=== PATIENT | female | born 1955 | race Caucasian/White ===

== ENCOUNTER 2020-06-02 20:50 | Inpatient (IN) | payer MEDICARE, OTHER ==
[~2020-06-02] VITALS: Ht 157.5 cm; Wt 45.0 kg
[~2020-06-02 20:50] MED LIST: 3IN1 COMMODE XX; ACETAMINOPHEN325 MG PO; ATROVENT HFA12.9 GM INH; BREO ELLIPTA 11 EACH PO; CERTAGEN1 EACH PO; DIAZEPAM 5MG TAB5 MG PO; DORZOLAMIDE-TIM10 ML EYEBOTH; FEOSOL325 MG PO; FISH OIL 1,3601 EACH PO; FOLIXAPURE5000 UNIT PO; K-DUR20 MEQ PO; LASIX20 MG PO; LATANOPROST2.5 ML EYEBOTH; LIDOCAINE 5% P1 EACH TOP; LOVENOX40 MG/0.4 SC; MOBIC7.5 MG PO; NORCO 5-325 TA1 EACH PO; OXYCODONE-ACET1 EAC1 PO; PREDNISONE 10MG10 MG PO; PRILOSEC20 MG PO; PROVENTIL HFA6.7 GM INH; SYNTHROID75 MCG PO; VITAMIN D35000 UNI1 PO; XARELTO10 MG PO; ZOFRAN8 MG PO; wheelchair
[2020-06-02 21:44] LABS: BASOPHIL 0.5 % (0-2); EOSINOPHIL 0.5 % (0-7); HCT 43.2 % (37.0-47.0); HGB 14.3 g/dl (12.5-16.0); LYMPHOCYTE 11.3 % (15-48); MCH 30.6 pg (25.0-31.0); MCHC 33.1 g/dL (32.0-36.0); MCV 92.3 fL (78.0-100.0); MONOCYTE 6.8 % (0-12); MPV 10.7 fL (6.0-9.5); NEUTROPHIL 80.6 % (41-80); NRBC 0; PLT 207 K/uL (150-400); RBC 4.68 M/uL (4.20-5.40); RDW 13.4 % (11.5-14.0)
[2020-06-02 21:57] LABS: ALBUMIN 3.7 g/dL (3.4-5.0); BILIRUBIN - TOTAL 0.5 mg/dL (0.2-1.0); BUN/CREAT RATIO (CALC) 44.2 RATIO; CREATININE 0.43 mg/dL (0.51-0.95); POTASSIUM 3.5 mmol/L (3.5-5.1); TOTAL PROTEIN 7.7 g/dL (6.4-8.2)
[2020-06-02 22:03] LABS: PRO-BNP 1380 pg/mL (<125)
[2020-06-03 08:22] LABS: CORONAVIRUS 2019 SARS-COV-2 NEGATIVE (NEGATIVE); INFLUENZA A NAA NEGATIVE (NEGATIVE)
[2020-06-03] MEDS ORDERED: MULTIVITAMIN1 EACH PO (09:31)
[2020-06-03] MEDS ORDERED: VITAMIN D3 PO (09:33)
--- NOTE | 2020-06-03 13:56 | NUR ---
REPORTS SHE LIVES WITH HER SISTER; PLEASE ADVISE OF ANY DISCHARGE NEEDS
--- NOTE | 2020-06-03 17:18 | NUR ---
06/03/20 Ms. Rangel is staying with her sister, [place]. She has [employer], cough bilingual office assistant, suctionmachine, smart vest, wc, and s. bench. An electric wc is on order. [facility] has followed patient in the past. Please advise if HH is needed at discharge. - Patient reports her daughter to be knowledgeable of ALS support groups / Associations.
[2020-06-04 05:59] LABS: HCT 37.2 % (37.0-47.0); HGB 12.1 g/dl (12.5-16.0); MCH 30.8 pg (25.0-31.0); MCHC 32.5 g/dL (32.0-36.0); MCV 94.7 fL (78.0-100.0); MPV 11.6 fL (6.0-9.5); RBC 3.93 M/uL (4.20-5.40); RDW 13.8 % (11.5-14.0); WBC 10.7 K/uL (4.0-10.5)
[2020-06-04 07:01] LABS: BUN/CREAT RATIO (CALC) 69.2 RATIO; CREATININE 0.39 mg/dL (0.51-0.95); POTASSIUM 4.1 mmol/L (3.5-5.1)
--- NOTE | 2020-06-04 13:57 | NUR ---
PT C/O HEARING LOSS TO RIGHT EAR, STATES "EVERYTHING SOUNDS MUFFLED AND I HAVE A BUZZING IN MY EAR." DR PLASENCIA NOTIFIED, WILL COME SEE PATIENT
--- NOTE | 2020-06-04 14:49 | NUR ---
1420 DR PLASENCIA AT BEDSIDE, ORDERED NASAL SPRAY AND CLARITIN
--- NOTE | 2020-06-04 15:22 | NUR ---
06/04 Discharge is anticipated for 06/05. is recommended for PT home eval. A referral was made to [facility] via [facility] per patient choice; affliation explained.
[2020-06-05 06:32] LABS: HGB 12.7 g/dl (12.5-16.0); MCH 30.9 pg (25.0-31.0); MCHC 33.4 g/dL (32.0-36.0); MCV 92.5 fL (78.0-100.0); MPV 10.9 fL (6.0-9.5); RBC 4.11 M/uL (4.20-5.40); RDW 13.6 % (11.5-14.0); WBC 9.5 K/uL (4.0-10.5)
[2020-06-05 06:44] LABS: BUN/CREAT RATIO (CALC) 52.5 RATIO; CREATININE 0.4 mg/dL (0.51-0.95); POTASSIUM 3.6 mmol/L (3.5-5.1)
--- NOTE | 2020-06-05 17:46 | NUR ---
1215 PATIENTS HR 118 BP 205/70. DR PLASENCIA NOTIFIED VIA TELEPHONE. PATIENT PLACED ON TELE AT THIS TIME, ORDERED 5MG IVP METOPROLOL 1T TO BE GIVEN NOW. MEDICAITON GIVEN. PATIENTS HR NOW 86 BP 150/84
[2020-06-06 06:13] LABS: HCT 40.4 % (37.0-47.0); HGB 13.7 g/dl (12.5-16.0); MCH 31.1 pg (25.0-31.0); MCHC 33.9 g/dL (32.0-36.0); MCV 91.6 fL (78.0-100.0); MPV 10.8 fL (6.0-9.5); RBC 4.41 M/uL (4.20-5.40); RDW 13.4 % (11.5-14.0); WBC 9.8 K/uL (4.0-10.5)
[2020-06-06 06:32] LABS: BUN/CREAT RATIO (CALC) 42.5 RATIO; CREATININE 0.4 mg/dL (0.51-0.95); POTASSIUM 3.7 mmol/L (3.5-5.1)
--- NOTE | 2020-06-06 16:10 | NUR ---
PT GOING TO [facility] REPORT CALLED TO VICENTE ARGUETA. FAMILY AT BEDSIDE IN FORMED OF PT TRANSFER. PT WILL BE GOING TO ROOM 4A-BED 9. EMS CALLED AND INFORMED OF TRANSPORT. AWAITING ON TRANSPORT.
--- NOTE | 2020-06-06 23:04 | NUR ---
AT 2007 CALL TO EMS STILL HAVE 2 TRUCKS OUT OF TOWN AND CANNOT TRANSPORT AT THIS TIME AND UNABLE TO GIVE ME A TIME. FAMILY AT STATION WAS LOAD CHECKER AND STATED WANTED TO JUST WAIT TIL TOMORROW, EXPLAINED TO FAMILY AND PATIENT THAT SHE WOULD LOSE HER BED AND THEY WERE STILL SURE THEY WANTED TO NOT GO. CHIROPRACTIC NEUROLOGIST INFORMED AND SHE SPOKE WITH FAMILY AND PATIENT WHO NOW HAS DECIDED SHE WANTS TO WAIT UNTIL TUESDAY. ALEXANDER ROJAS INFORMED AND ORDER OBTAINED TO LEAVE MONITOR OFF SINCE IT HAS BEEN OFF SINCE ABOUT 3PM PER FAMILY. CALL TO EMS WHO IS ON THE WAY NOW, ASKED FAMILY AND PATIENT AGAIN IF SHE WAS SURE SHE DID NOT WANT TO GO AND SHE REFUSED AGAIN THE TRANSFER. INFORMED EMS AND ALSO CALLED [facility] AND INFORMED THEM. FAMILY AND PATIENT ARE AWARE THEY LOSE THE BED ONCE DISCHARGE IS STOPPED
--- NOTE | 2020-06-07 14:37 | NUR ---
CALLED REPORT TO BRITTNY DOWD, GAVE REPORT TO LALY ARGUETA. FAMILY AWARE AND IN ROOM WITH PT. EMS PICKED UP PT AT 1351
== END 2020-06-07 13:55 | disposition other institution (70) | DRG 193 ==
LOC: FER 20:50 → FICU 06-03 07:19 → FMS 06-03 07:19
PROVIDERS: Emergency Medicine; ADMIT Hospitalist
DX: J18.9 Pneumonia, unspecified organism (principal); J96.01 Acute respiratory failure with hypoxia; J98.19 Other pulmonary collapse; G12.21 Amyotrophic lateral sclerosis; E03.9 Hypothyroidism, unspecified; K21.9 Gastro-esophageal reflux disease without esophagitis; F41.9 Anxiety disorder, unspecified; Z20.822 Contact with and (suspected) exposure to COVID-19; Z96.652 Presence of left artificial knee joint; I50.9 Heart failure, unspecified; Z96.611 Presence of right artificial shoulder joint; Z90.710 Acquired absence of both cervix and uterus; Z87.891 Personal history of nicotine dependence; Z90.49 Acquired absence of other specified parts of digestive tract; Z98.890 Other specified postprocedural states; Z88.5 Allergy status to narcotic agent; Z91.040 Latex allergy status
CPT/HCPCS: 36415; 71045; 71275; 80048; 80053; 83605; 83880; 84145; 84484; 85025; 85379; 87040; 93005; 94640; 94760; 97162; 97166; 97530-GP; 97535; J0456; J0696; J2543; J2930; J7050; Q9967; U0002

== ENCOUNTER 2020-07-08 11:57 | Inpatient (IN) | payer MEDICARE, OTHER ==
[~2020-07-08 11:57] MED LIST changes: +MULTIVITAMIN1 EACH PO; +VITAMIN D3 PO
[2020-07-08 13:10] LABS: BASOPHIL 0.8 % (0-2); EOSINOPHIL 8.6 % (0-7); HCT 40.3 % (37.0-47.0); HGB 13.4 g/dl (12.5-16.0); LYMPHOCYTE 25.3 % (15-48); MCH 30.6 pg (25.0-31.0); MCHC 33.3 g/dL (32.0-36.0); MONOCYTE 8.6 % (0-12); MPV 11.4 fL (6.0-9.5); NEUTROPHIL 56.4 % (41-80); NRBC 0; PLT 256 K/uL (150-400); RBC 4.38 M/uL (4.20-5.40); RDW 13.5 % (11.5-14.0); WBC 7.4 K/uL (4.0-10.5)
[2020-07-08 13:16] LABS: INR 1.24 (0.9-1.2); PROTHROMBIN TIME 14.8 SECONDS (11.4-13.6)
[2020-07-08 13:34] LABS: ALBUMIN 3.1 g/dL (3.4-5.0); BILIRUBIN - TOTAL 0.3 mg/dL (0.2-1.0); BUN/CREAT RATIO (CALC) 47.6 RATIO; CREATININE 0.42 mg/dL (0.51-0.95); GLOBULIN (CALCULATION) 3.4 g/dL; POTASSIUM 3.9 mmol/L (3.5-5.1); TOTAL PROTEIN 6.5 g/dL (6.4-8.2)
--- NOTE | 2020-07-08 16:12 | NUR ---
07/08/20 Patient is current with [facility].
--- NOTE | 2020-07-09 02:10 | NUR ---
AROUND 0037 PT. HR STARTED TO DIP DOWN IN THE LOW 40S AND GO UP TO THE HIGH 50S IN AFIB. PT. IS ASYMPTOMATIC, BUT HYPOTENSIVE AT 86/45. CARDIZEM HAS BEEN TITRATED DOWN TO 5 AND THEN RUNDER OFF AT 0051 PER MANAGER STORAGE ORDER. MANAGER STORAGE HAS BEEN NOTIFIED AND UPDATED ON PT.S VITAL SIGNS AND STATUS. NO FURTHER ORDERS AT THIS TIME.
[2020-07-09 05:56] LABS: BASOPHIL 0.1 % (0-2); EOSINOPHIL 0 % (0-7); HCT 40.3 % (37.0-47.0); HGB 13.1 g/dl (12.5-16.0); LYMPHOCYTE 9.2 % (15-48); MCH 30.7 pg (25.0-31.0); MCHC 32.5 g/dL (32.0-36.0); MCV 94.4 fL (78.0-100.0); MONOCYTE 5.3 % (0-12); MPV 11.2 fL (6.0-9.5); NEUTROPHIL 85.1 % (41-80); NRBC 0; PLT 253 K/uL (150-400); RBC 4.27 M/uL (4.20-5.40); RDW 13.4 % (11.5-14.0); WBC 8.8 K/uL (4.0-10.5)
[2020-07-09 06:16] LABS: BUN/CREAT RATIO (CALC) 43.9 RATIO; CREATININE 0.57 mg/dL (0.51-0.95); MAGNESIUM 1.6 mg/dL (1.8-2.4); POTASSIUM 4.9 mmol/L (3.5-5.1)
[2020-07-10 06:18] LABS: BASOPHIL 0.7 % (0-2); EOSINOPHIL 2.2 % (0-7); HCT 38.8 % (37.0-47.0); HGB 12.2 g/dl (12.5-16.0); LYMPHOCYTE 25.2 % (15-48); MCH 31.2 pg (25.0-31.0); MCHC 31.4 g/dL (32.0-36.0); MCV 99.2 fL (78.0-100.0); MONOCYTE 11.8 % (0-12); MPV 11.2 fL (6.0-9.5); NEUTROPHIL 59.7 % (41-80); NRBC 0; PLT 237 K/uL (150-400); RBC 3.91 M/uL (4.20-5.40); WBC 11.1 K/uL (4.0-10.5)
[2020-07-10 06:27] LABS: BUN/CREAT RATIO (CALC) 54.9 RATIO; CREATININE 0.51 mg/dL (0.51-0.95); MAGNESIUM 1.8 mg/dL (1.8-2.4); PHOSPHORUS 5.6 mg/dL (2.6-4.7); POTASSIUM 4.6 mmol/L (3.5-5.1)
[2020-07-11 05:41] LABS: BASOPHIL 1.2 % (0-2); EOSINOPHIL 6.2 % (0-7); HCT 37.5 % (37.0-47.0); HGB 12.1 g/dl (12.5-16.0); LYMPHOCYTE 24.7 % (15-48); MCH 30.4 pg (25.0-31.0); MCHC 32.3 g/dL (32.0-36.0); MCV 94.2 fL (78.0-100.0); MONOCYTE 10.7 % (0-12); MPV 11.2 fL (6.0-9.5); NEUTROPHIL 56.9 % (41-80); NRBC 0; PLT 229 K/uL (150-400); RBC 3.98 M/uL (4.20-5.40); RDW 13.5 % (11.5-14.0); WBC 10.2 K/uL (4.0-10.5)
[2020-07-11 06:12] LABS: ALBUMIN 3.1 g/dL (3.4-5.0); BILIRUBIN - TOTAL 0.3 mg/dL (0.2-1.0); BUN/CREAT RATIO (CALC) 41.8 RATIO; CREATININE 0.67 mg/dL (0.51-0.95); GLOBULIN (CALCULATION) 2.8 g/dL; MAGNESIUM 1.6 mg/dL (1.8-2.4); TOTAL PROTEIN 5.9 g/dL (6.4-8.2)
[2020-07-11 12:41] LABS: FT4 (FREE T4) 1.7 ng/dL (0.76-1.46)
--- NOTE | 2020-07-11 14:36 | NUR ---
PT TO RETURN HOME. SHE IS CURRENT WITH [facility]. PLEASE LET [facility] KNOW IF PT. D/C HOME OVER THE WEEKEND.
[2020-07-12 06:02] LABS: EOSINOPHIL 9.4 % (0-7); HCT 39.8 % (37.0-47.0); HGB 12.8 g/dl (12.5-16.0); LYMPHOCYTE 19.2 % (15-48); MCH 30.7 pg (25.0-31.0); MCHC 32.2 g/dL (32.0-36.0); MCV 95.4 fL (78.0-100.0); MONOCYTE 13.2 % (0-12); MPV 11.1 fL (6.0-9.5); NRBC 0; PLT 262 K/uL (150-400); RBC 4.17 M/uL (4.20-5.40); RDW 13.6 % (11.5-14.0); WBC 9.5 K/uL (4.0-10.5)
[2020-07-12 06:35] LABS: BUN/CREAT RATIO (CALC) 38.7 RATIO; CREATININE 0.62 mg/dL (0.51-0.95); POTASSIUM 4.6 mmol/L (3.5-5.1)
[2020-07-13 05:32] LABS: BUN/CREAT RATIO (CALC) 45.8 RATIO; CREATININE 0.59 mg/dL (0.51-0.95); POTASSIUM 4.3 mmol/L (3.5-5.1)
[2020-07-14 06:55] LABS: BUN/CREAT RATIO (CALC) 51.6 RATIO; CREATININE 0.64 mg/dL (0.51-0.95); POTASSIUM 3.7 mmol/L (3.5-5.1)
[2020-07-14 06:59] LABS: MAGNESIUM 1.5 mg/dL (1.8-2.4)
[2020-07-14] MEDS ORDERED: LOPRESSOR25 MG PO (10:51)
[2020-07-14] MEDS ORDERED: MAG-OXIDE 400M400 MG PO (10:51)
[2020-07-14] MEDS ORDERED: ELIQUIS5 MG PO (10:51)
[2020-07-14] MEDS ORDERED: DIGITEK125 MCG PO (10:51)
[2020-07-14] MEDS ORDERED: K-DUR20 MEQ PO (10:51)
[2020-07-14] MEDS ORDERED: FUROSEMIDE 40MG40 MG PO (10:51)
[2020-07-14] MEDS ORDERED: VENTOLIN HFA IN18 GM INH (10:53)
[2020-07-14] MEDS ORDERED: POTASSIUM20 MEQ/11 PO (11:45)
--- NOTE | 2020-07-14 12:17 | NUR ---
PT DISCAHRGED VIA WHEELCHAIR WITH ABSTRACT MAKER, DAUGHTER, AND 2 SISTERS PRESENT. SISTER ASSISTED PT INTO WHEELCHAIR AND PUTTING ON ANKLE BRACES. PT ASSISTED WITH GAIT BELT TO WHEELCHAIR AND INTO CAR. FAMILY TOOK ALL PERSONAL BELONGINGS.
--- NOTE | 2020-07-14 12:33 | NUR ---
07/14/20 [facility] was notified of todays discharge.
== END 2020-07-14 12:19 | disposition home or self-care (01) | DRG 280 ==
LOC: FER 11:57 → FTCU 14:03
PROVIDERS: Emergency Medicine; ADMIT Internal Medicine
DX: I48.91 Unspecified atrial fibrillation (principal); I21.A1 Myocardial infarction type 2; I50.33 Acute on chronic diastolic (congestive) heart failure; G12.21 Amyotrophic lateral sclerosis; Z68.1 Body mass index [BMI] 19.9 or less, adult; B37.89 Other sites of candidiasis; A69.20 Lyme disease, unspecified; J44.1 Chronic obstructive pulmonary disease with (acute) exacerbation; I11.0 Hypertensive heart disease with heart failure; R63.6 Underweight; Z20.822 Contact with and (suspected) exposure to COVID-19; I95.9 Hypotension, unspecified; G83.9 Paralytic syndrome, unspecified; H40.9 Unspecified glaucoma; I27.20 Pulmonary hypertension, unspecified; F41.9 Anxiety disorder, unspecified; I08.1 Rheumatic disorders of both mitral and tricuspid valves; E03.9 Hypothyroidism, unspecified; Z96.611 Presence of right artificial shoulder joint; Z88.5 Allergy status to narcotic agent; Z99.81 Dependence on supplemental oxygen; Z91.040 Latex allergy status; Z90.49 Acquired absence of other specified parts of digestive tract; Z98.41 Cataract extraction status, right eye
CPT/HCPCS: 36415; 36600; 71045; 80048; 80053; 80061; 80162; 82803; 83605; 83735; 83880; 84100; 84145; 84439; 84443; 84484; 85025; 85610; 87040; 93005; 94010; 94640; J1160; J1650; J1885; J1940; J2060; J2405; J2930; J3475; J7030; U0002

== ENCOUNTER 2020-08-04 11:16 | Emergency (ER) | payer MEDICARE, OTHER ==
[~2020-08-04 11:16] MED LIST changes: +DIGITEK125 MCG PO; +ELIQUIS5 MG PO; +FUROSEMIDE 40MG40 MG PO; +LOPRESSOR25 MG PO; +MAG-OXIDE 400M400 MG PO; +POTASSIUM20 MEQ/11 PO; +VENTOLIN HFA IN18 GM INH
[2020-08-04 12:25] LABS: BASOPHIL 1.1 % (0-2); EOSINOPHIL 11.8 % (0-7); HCT 45.3 % (37.0-47.0); HGB 14.6 g/dl (12.5-16.0); LYMPHOCYTE 29.5 % (15-48); MCH 30.5 pg (25.0-31.0); MCHC 32.2 g/dL (32.0-36.0); MCV 94.8 fL (78.0-100.0); MONOCYTE 8.8 % (0-12); MPV 11.1 fL (6.0-9.5); NEUTROPHIL 48.5 % (41-80); NRBC 0; PLT 198 K/uL (150-400); RBC 4.78 M/uL (4.20-5.40); RDW 14.1 % (11.5-14.0); WBC 7.1 K/uL (4.0-10.5)
[2020-08-04 12:58] LABS: PRO-BNP 3937 pg/mL (<125)
[2020-08-04 13:28] LABS: ALBUMIN 3.7 g/dL (3.4-5.0); BILIRUBIN - TOTAL 0.4 mg/dL (0.2-1.0); BUN/CREAT RATIO (CALC) 43.8 RATIO; CREATININE 0.48 mg/dL (0.51-0.95); GLOBULIN (CALCULATION) 3.6 g/dL; POTASSIUM 4.5 mmol/L (3.5-5.1); TOTAL PROTEIN 7.3 g/dL (6.4-8.2)
[2020-08-04] MEDS ORDERED: PREDNISONE 20MG20 MG PO (14:01)
== END 2020-08-04 14:26 | disposition home or self-care (01) ==
LOC: FER 11:16
PROVIDERS: Emergency Medicine
DX: G12.21 Amyotrophic lateral sclerosis (principal); R06.00 Dyspnea, unspecified; I48.91 Unspecified atrial fibrillation; J44.9 Chronic obstructive pulmonary disease, unspecified; Z90.49 Acquired absence of other specified parts of digestive tract; Z90.710 Acquired absence of both cervix and uterus; Z98.890 Other specified postprocedural states; Z87.891 Personal history of nicotine dependence; Z88.5 Allergy status to narcotic agent; Z79.01 Long term (current) use of anticoagulants; Z79.899 Other long term (current) drug therapy
CPT/HCPCS: 36415; 36600; 71045; 80053; 80162; 82803; 83605; 83880; 84145; 84484; 85025; 87040; 93005; 94640; 94760; J2930